=== PATIENT | female | born 1945 | race African-American/Black ===

== ENCOUNTER 2019-06-02 13:42 | Emergency (ER) | payer OTHER ==
[~2019-06-02] VITALS: Ht 165.1 cm; Wt 92.0 kg
[2019-06-02 13:50] VITALS: BP 155/75
[2019-06-02] MEDS ORDERED: GLUCAGON,HUMAN RECOMBINANT 1MG/VIAL IV ONE (15:30)
[2019-06-02] MEDS ORDERED: ONDANSETRON HCL 4MG/2ML INJ IV ONE (15:30)
== END 2019-06-02 16:51 | disposition left against medical advice (07) ==
LOC: ER 15:16 → EDBEDREQ 15:38 → ER 16:51 → CANBEDREQ 20:05
DX: T17.228A Food in pharynx causing other injury, initial encounter (principal); I10 Essential (primary) hypertension; Z88.0 Allergy status to penicillin; X58.XXXA Exposure to other specified factors, initial encounter; Y93.89 Activity, other specified; Y92.89 Other specified places as the place of occurrence of the external cause; Y99.8 Other external cause status
CPT/HCPCS: 99281; J2405